=== PATIENT | female | born 2000 | race Caucasian/White ===

== ENCOUNTER 2023-02-13 16:38 | Emergency (ER) | payer OTHER, MEDICAID, SELFPAY ==
[2023-02-13 16:48] VITALS: BP 110/71; PULSE 82; RESP 18; TEMP 36.4; O2SAT 99
[2023-02-13] MEDS: TETANUS,DIPHTHERIA,AC PERTUSSIS ADULT (0.5 ML) BOOSTRIX IM (18:17)
--- NOTE | 2023-02-13 18:34 | ED.WOUNDLAC ---
HPI - Wound/Laceration General Chief Complaint: Wound/Laceration Stated Complaint: finger lac Time Seen by Provider: 02/13/23 17:40 Source: patient Mode of arrival: ambulatory Limitations: no limitations History of Present Illness HPI narrative: Patient is a 22 y/o female who presents to the ED with c/o laceration to her left hand. Patient reports she was opening a hard plastic children's toy tonight with a pocket knife when the knife slipped and she sustanied a laceration to her L hand in the webspace between her 1st/2nd digits. Patient denies significant pain. Denies numbness/tingling. Tetanus unknown. Related Data Allergies Allergy/AdvReac Type Severity Reaction Status Date / Time promethazine [From Phenergan] Allergy Hives Verified 02/13/23 17:29 Review of Systems Review of Systems: CONSTITUTIONAL: Denies fever, chills, or sweats.. SKIN: See HPI. MUSCULOSKELETAL: See HPI. NEUROLOGIC: Denies tingling, numbness, or weakness. All systems reviewed & are unremarkable except as noted in HPI and below Exam Narrative: GENERAL: Well appearing, well-nourished, non-toxic, in no acute distress. HEAD: Normocephalic, atraumatic. NECK: Supple. No adenopathy, no masses. RESPIRATORY: Airway patent, respirations nonlabored. CARDIOVASCULAR: Regular rate and rhythm without murmurs, rubs, or gallops. Radial pulses 2+ and equal bilaterally. MUSCULOSKELETAL: Moves all extremities. Strength/ROM intact without gross deformities. SKIN: Warm, dry, normal color. No rashes. 1.5 cm laceration to L dorsal hand in webspace between 1/2 digits. No significant bleeding. Sensation intact. NEURO: A&O X3. Speech clear. Cranial nerves II-XII grossly intact. Steady gait. No ataxic movements. PSYCHIATRIC: Appropriate mood and affect. Normal interaction. Course Vital Signs Vital signs: Vital Signs Temperature 97.5 F L 02/13/23 16:48 Pulse Rate 82 02/13/23 16:48 Respiratory Rate 18 02/13/23 16:48 Blood Pressure 110/71 02/13/23 16:48 Pulse Oximetry 99 02/13/23 16:48 Oxygen Delivery Room Air 02/13/23 16:48 Temperature 97.5 F L 02/13/23 16:48 Pulse Rate 82 02/13/23 16:48 Respiratory Rate 18 02/13/23 16:48 Blood Pressure 110/71 02/13/23 16:48 Pulse Oximetry 99 02/13/23 16:48 Oxygen Delivery Room Air 02/13/23 16:48 Procedures Laceration Laceration 1: Date: 02/13/23 Time: 18:30 Site: hand Side (If applicable): left Size (cm): 1.5 Description: linear Depth: simple, single layer Local Anesthetic: lidocaine 1% Amount of anesthesia used (mL): 5 Pre-repair: wound explored, irrigated and irrigated extensively ====== Skin Level ====== Skin layer closed with: nylon Size (cm): 5-0 Number of sutures: 3 Technique: simple, interrupted ====== Subcutaneous Layer ====== ====== Muscle Layer ====== ====== Tendon Layer ====== MDM - Wound/Laceration MDM Narrative Medical decision making narrative: Patient presented to ED with laceration to left hand. Patient neurovascularly intact. Laceration repaired w/o complications. Tetanus updated. Given wound care instructions and reasons to return. Medical Records Attestation: I reviewed the patient's medical records. Discharge Plan Discharge Clinical Impression: Laceration of left hand Qualifiers: Encounter type: initial encounter Foreign body presence: without foreign body Qualified Code(s): S61.412A - Laceration without foreign body of left hand, initial encounter Patient Disposition: Home, Self-Care Condition: Stable Instructions: Antibiotic Form, Care For Your Stitches (ED), Laceration (ED) Additional Instructions: Return to the ED or visit an urgent care or your PCP for follow-up and wound check/suture removal in 10 to 14 days. Keep the wound dry for 24 hours. You may remove the bandage after 24 hours and wash with simple soap and water, but
== END 2023-02-13 18:48 | disposition home or self-care (01) ==
PROVIDERS: Emergency Provider Physician Assistant
DX: S61.412A Laceration without foreign body of left hand, initial encounter (principal); W26.9XXA Contact with unspecified sharp object(s), initial encounter; Z23 Encounter for immunization
CPT/HCPCS: 12001; 90471; 90715; 99282

== ENCOUNTER 2023-07-24 15:43 | Emergency (ER) | payer OTHER, MEDICAID, SELFPAY ==
[2023-07-24 16:06] VITALS: BP 104/72; PULSE 84; RESP 16; TEMP 36.8; O2SAT 99
--- NOTE | 2023-07-24 16:58 | ED.GENADULT ---
HPI - General Adult General Chief complaint: Upper Respiratory Infection Stated complaint: throat swollen /pain Source: patient Mode of arrival: ambulatory Limitations: no limitations History of Present Illness HPI narrative: Patient presents for evaluation of sick symptoms for last 5 days. Her initial symptoms headache. Two days later she developed a sore throat. She denies any fever, chills, nausea, vomiting. She has experienced a nonproductive cough. Yesterday she had some mild shortness of breath but that has resolved. She has some hot flashes but states that those are consistent with , she is currently . Her mother was recently diagnosed with influenza and her brother with strep. Pt does use marijuana. Her daughter is also being evaluated for sick symptoms. Related Data Home Medications Medication Instructions Recorded Confirmed norethindrone (contraceptive) 0.35 0.25 mg PO DAILY 07/24/23 07/24/23 mg tablet (Jencycla) Allergies Allergy/AdvReac Type Severity Reaction Status Date / Time promethazine [From Phenergan] Allergy Hives Verified 07/24/23 15:44 Review of Systems Review of Systems: CONSTITUTIONAL: Denies fever, chills, or sweats. EYES: Denies visual changes, redness, or discharge. ENT: Reports sore throat. Denies rhinorrhea, congestion, or otalgia. CARDIOVASCULAR: Denies chest pain, palpitations, or edema. RESPIRATORY: reports cough. Reports mild shortness of breath yesterday, now resolved. GASTROINTESTINAL: Denies abdominal pain, nausea, vomiting, or diarrhea. GENITOURINARY: Denies dysuria or hematuria. SKIN: Denies rash or itching. MUSCULOSKELETAL: Denies back pain, joint pain, or myalgia. NEUROLOGIC: Reports headache. Deniesnumbness, dizziness, or weakness. PSYCHIATRIC: Denies anxiety or depression. [facility] Past Medical History Medical History No pertinent past medical history Surgical History Surgical History History of Family History Family History Mother DVT (deep venous thrombosis) Social History Social History Substance use: current Substance use type: marijuana Living arrangements: with family Gender identity (if verbalized by the patient): Female Sexual Orientation (if Verbalized by the Patient): Straight or Heterosexual Spiritual care concerns: No Exam Narrative: GENERAL: Well-appearing, well-nourished, and in no acute distress. HEAD: Normocephalic, atraumatic. EYES: PERRLA and EOMI. ENT: Nares clear, no rhinorrhea or epistaxis. Mucous membranes moist. Oropharynx without tonsillar hypertrophy exudate or other lesions. Bilateral TMs pearly carrera nonbulging NECK: Supple. No adenopathy or masses. No carotid bruits or JVD CHEST: Clear to auscultation. No respiratory distress. No wheezes rales or rhonchi HEART: Regular rate and rhythm. No murmur heard. Normal peripheral pulses. ABDOMEN: Soft, nontender, nondistended, normal active bowel sounds. EXTREMITIES: Normal range of motion. No edema. SKIN: Warm, dry, no rash. NEURO: No focal deficits. Alert and oriented x3. PSYCH: Normal mood and affect. Course Course Emergency Course: This is a 22-year-old female who presented for evaluation of sick symptoms. Strep, COVID, influenza were all negative. Exam is consistent with acute viral syndrome. Will increase hydration. OTC agents that are safe while for symptom management. Follow up with primary provider. Go to the ER for worsening symptoms. Pt in agreement with plan of care. Level of Care: Express Care Visit Vital Signs Vital signs: Vital Signs Temperature 36.8 C 07/24/23 16:06 Pulse Rate 84 07/24/23 16:06 Respiratory Rate 16 07/24/23 1
== END 2023-07-24 17:05 | disposition home or self-care (01) ==
PROVIDERS: Emergency Provider Nurse Practitioner
DX: B34.9 Viral infection, unspecified (principal); Z20.822 Contact with and (suspected) exposure to COVID-19; F12.90 Cannabis use, unspecified, uncomplicated
CPT/HCPCS: 87081; 87426; 87804; 87880; 99213; G0463

== ENCOUNTER 2024-08-04 22:06 | Emergency (ER) | payer BC, SELFPAY ==
--- NOTE | ~2024-08-04 | XR_ITS ---
XR knee LT min 4V Ordering provider: Lesly Lassiter History: . post reduciton; r/o assoc fx . Comparison: 08/04/2024 FINDINGS: BONES: Status post reduction of the dislocated left patella. No acute fracture or dislocation. JOINT SPACES: Normal. SOFT TISSUES: Normal. IMPRESSION: No acute osseous abnormality left knee. Status post reduction of the dislocated patella. Reviewed, dictated and finalized at location A.
--- NOTE | ~2024-08-04 | XR_ITS ---
XR knee LT 3V Ordering provider: Lesly Lassiter MD History: . deformity . Comparison: None. FINDINGS: BONES: No acute fracture. Lateral dislocation of the patella is noted. JOINT SPACES: Normal. SOFT TISSUES: Normal. IMPRESSION: No definite fractures. Lateral dislocation of the patella. Reviewed, dictated and finalized at location A.
[2024-08-04 22:06] VITALS: BP 108/80; PULSE 102; RESP 18; TEMP 36.7; O2SAT 97
[2024-08-04] MEDS: HYDROmorphone HCL INJ (*CRX) 1 MG/ML SYR IV PUSH (23:08)
--- OUTSIDE RECORDS SUMMARY | 2024-08-04 23:11 | XMS_ITS | Clinical Summary ---
Author Organization [facility] Address [facility] [place] [address] Care Team Providers Care Rn Research Name Role Phone Unavailable Primary Care Provider Unavailabl e Encounters Date Type Department Care Team Description 07/23/2024 Telephone [facility] Family & Internal Medicine [address] [id number] Holly Washington APNP Appointment Request from Last 3 Months Social History Tobacco Use Types Packs/Day Years Used Date Smoking Tobacco: Never Assessed Comments Unknown Sex and Gender Information Value Date Recorded Sex Assigned at Not on file Legal Sex Unknown 07/23/2024 8:59 AM CDT Gender Identity Not on file Sexual Orientation Not on file Plan of Treatment Health Maintenance Due Date Last Done Comments Cervical Cancer Screening Pa p Smear (Age 21 to 29) Every 3 Years 1998 Cervical Cancer Screening 1998 Annual Physical 2001 HPV Vaccines (1 - 3-dose series) 2013 Hepatitis C 2016 DTaP, Tdap and Td Vaccines ( 1 - Tdap) 2017 Hepatitis B Vaccines (1 of 3 - 19+ 3-dose series) 2017 COVID-19 Vaccine (2023-2 5 season) 2024 Meningococcal B Vaccine Aged Out No l onger eligible based on patient's age to complete this topic Meningococcal Vaccine Aged Out No kyler sebastian eligible based on patient's age to complete this topic Pneumococcal Vaccine: Pediat rics (0 to 5 Years) and At-Risk Patients (6 to 64 Years) Aged Out No longer eligible b ased on patient's age to complete this topic RSV Immunizations Under 20 Months Aged Out No longer eligible based on patient's age to complete this topic
--- OUTSIDE RECORDS SUMMARY | 2024-08-04 23:11 | XMS_ITS | Continuity of Care Document ---
Author Organization [facility] Address [address] [place] [address] Phone Care Team Providers Care Marker Delivery Name Role Phone CHITO OVALLE MD, FRANKLYN Unavailable Unavailab le Procedures Procedure Date ULTRASOUND, OB, 2ND/3RD TRIMESTER, SINGL E OR 1ST GESTATION Advance Directives Directive Yes / No Effective Date File Name No Information Encounters Encounter Description Practice Location Reason(s) For Visit Diagnoses Date Provider Providers Copied on Encounter [facility] , [address], [place], [address], [place] tel:[phone] [facility] Encounter for screening for malformationsWeeks Gestation of MD FRANKLYN FOWLER. [address] [facility] [facility] [address], [place], [place], [id number] , [place]. tel:[phone] Referring Provider: ANKIT RAMIREZ II S, [address] [facility], [place], [address]. tel:[phone] Family History Family Member Type Diagnosis Age At Onset No Information Payers Payer name Insurance type Covered constitution party ID Authoriza timeg(s) CIGNA [id number] OPEN ACCESS PLU [id number] [place] MED[place] [id number] [place] [id number] Social History Type Description Quantity Date Captured Comments Sex Female Smoking Status No Information Chief Complaint And Reason For Visit No Information History Of Present Illness Encounter Date Complaint History Of Prese nt Illness No Information Instructions Date Instruction Additional Infor mation No Information Assessments Type Assessment Date No Information
[2024-08-04 23:17] VITALS: BP 90/60; PULSE 77; RESP 12; O2SAT 96
--- NOTE | 2024-08-04 23:23 | ED_ITS ---
HPI - Extremity Injury (Lower) General Chief Complaint: Extremity Injury, Lower Stated Complaint: knee deformity Time Seen by Provider: 08/04/24 22:51 Source: patient and EMS Mode of arrival: EMS Limitations: no limitations History of Present Illness HPI Narrative: Patient presents obvious knee deformity by EMS. She states she was sitting couch with her toddler jumped on her. She has a history of previous recurrent left knee dislocations. 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 No paresthesias, just pain. Related Data Allergies Allergy/AdvReac Type Severity Reaction Status Date / Time promethazine (From Phenergan) Allergy Hives Verified 07/24/24 14:31 [facility] Past Medical History Medical History Recurrent dislocation of knee Encounter for gynecological examination Surgical History Surgical History History of Family History Family History Mother DVT (deep venous thrombosis) Thyroid cancer Social History Social History Smoking status: Former smoker Tobacco type: e-cigarettes/vaping Alcohol intake: never Substance use: former Substance use type: marijuana Do You Feel Safe in your Home?: Yes Lack of Transportation: No Lack of Food: Never True Current Housing: I Have Housing Concerned About Future Housing: No Difficulty Paying Gas/Electric Bills: No Difficulty Paying for Meds: No Currently Unemployed: No Education: High School Diploma/GED Difficulty w/ Childcare or Family Care: No Living arrangements: with family Additional living arrangements comments: Child Occupation/Education: student 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 HEAD: Normocephalic, atraumatic. EYES: Non injected, non icteric ENT: Nares clear, no rhinorrhea or epistaxis. NECK: Supple. CHEST: Speaking in full sentences. No respiratory distress. HEART: Tachycardic rate and rhythm. . ABDOMEN: Soft, nondistended. EXTREMITIES:Obvious left patellar dislocation with lateral displacement. No lower extremity edema. SKIN: Warm, dry, no rash. NEURO: No focal deficits. Alert and oriented x3. Sensation intact throughout thigh, knee, and calf/mtz. PSYCH: Normal mood and affect. Course Vital Signs Vital signs: Vital Signs Temperature 98.0 F 08/04/24 22:06 Pulse Rate 102 H 08/04/24 22:06 Respiratory Rate 18 08/04/24 22:06 Blood Pressure 108/80 08/04/24 22:06 Pulse Oximetry 97 08/04/24 22:06 Oxygen Delivery Room Air 08/04/24 22:06 Temperature 98.0 F 08/04/24 22:06 Pulse Rate 68 08/05/24 01:04 Respiratory Rate 16 08/05/24 01:04 Blood Pressure 123/64 08/05/24 01:04 Pulse Oximetry 98 08/05/24 01:04 Oxygen Delivery Room Air 08/04/24 22:06 MDM - Extremity Injury (Lower) MDM Narrative Medical decision making narrative: Patient presents with obvious left patellar dislocation sustained when toddler jumped on her knee. She has a history of frequent dislocations and had seen an orthopedic surgeon when she lived in [place] but now resides in this area as a full-time college student. In the emergency department she is afebrile with vital signs notable for mild tachycardia. Patient given Dilaudid for analgesia prior to procedure. JOINT REDUCTION PROCEDURE NOTE performed at 23:30 on 08/04/24 * Hip placed in mild flexion, facilitating relaxation of the quadriceps * RN applied slow downward pressure over quadriceps, stretching the muscle and slowly straightening the leg * I gently rotated the patella lateral to anterior * Immediately noted to be reduce and patient experiencing pain relief * No complications, patient tolerated well Patient placed in Michael wrap initially while obtaining images followed by placement in knee immobilizer. Obtained radiographs to rule out associated fracture. Patient discharged home in stable condition with prescriptions for analgesic medications. Allow weight-bearing as tolerated. Provided crutches if needed. Patient given contact information for local orthopedic surgeon and advised follow-up in the next 1-2 weeks. Verifies understanding, stable for discharge. Imaging Data My impression: Attempted to interpret/view postreduction images but unable to load more than single view. Unable to visualize sunrise view Radiologist's impression: XR Left Knee 4 V Stat Rad: Reduction of previously seen patellar dislocation. No visible fracture. Discharge Plan Discharge Clinical Impression: Closed dislocation of left patella Patient Disposition: Home Condition: Stable Instructions: Antibiotic Form, Patellar Dislocation (ED), Knee Immobilizer (ED) Additional Instructions: Recommend following up with the orthopedic surgeon listed below in 1-2 weeks. Call for an appointment. Keep the knee immobilizer in place until you follow up and bear weight as tolerated. Use the crutches as necessary. Acetaminophen/Tylenol (maximum 4000 mg per day) is safe to take with NSAIDs (ibuprofen/Motrin) for pain relief. Return to the emergency department with any new or worsening symptoms Patient Language: Slovenian Prescriptions: New ibuprofen 600 mg tablet 600 mg PO TID PRN (Reason: pain) Qty: 30 0RF acetaminophen 500 mg capsule 1,000 mg PO Q6H PRN (Reason: pain) Qty: 30 0RF No Action norethindrone ac-eth estradiol [ (21)] 1.5-30 mg-mcg tablet 1 tablet PO DAILY Qty: 63 0RF Follow-up/Referrals: Juan A Crouch MD [Physician] - (Orthopedics) UNKNOWN,DOCTOR [Primary Care Provider] - Stand Alone Forms: Work/School Release IP Time of Disposition: 01:22
--- NOTE | 2024-08-05 | PC.NURSE ---
ice applied and ARIC wrap L knee
--- NOTE | 2024-08-05 00:58 | PC.NURSE ---
knee immnobilizer applied to L leg.
[2024-08-05 01:04] VITALS: BP 123/64; PULSE 68; RESP 16; O2SAT 98
== END 2024-08-05 01:24 | disposition home or self-care (01) ==
PROVIDERS: Emergency Provider Student in an Organized Health Care Education/Training Program
DX: S83.015A Lateral dislocation of left patella, initial encounter (principal); Z87.891 Personal history of nicotine dependence; W51.XXXA Accidental striking against or bumped into by another person, initial encounter
CPT/HCPCS: 27560; 73562; 73564; 96374; 99284; 99285; J1171

== ENCOUNTER 2024-09-06 17:46 | Emergency (ER) | payer BC, SELFPAY ==
[2024-09-06] VITALS (9 sets, daily range): BP systolic 99–119; BP diastolic 62–83; PULSE 52–82; RESP 10–16; TEMP 36.6–36.7; O2SAT 95–100
--- NOTE | ~2024-09-06 | XR_ITS ---
HISTORY: POST REDUCTION COMPARISON: 08/04/2024 TECHNIQUE: 2 views of the left knee were performed FINDINGS: No acute or subacute fracture. Trace medial tibiofemoral joint space narrowing is identified. No suprapatellar joint effusion is identified. The infrapatellar joint space is clear. IMPRESSION: Anatomic alignment post reduction, as detailed above. Reviewed, dictated and finalized at location A.
[2024-09-06] MEDS: HYDROmorphone HCL INJ (*CRX) 2 MG/ML VIAL 1 MG IV PUSH (17:55)
--- NOTE | 2024-09-06 17:57 | PC.NURSE ---
EDP Torossian at bedside for knee reduction.
--- NOTE | 2024-09-06 18:09 | ED.LOWEXIN ---
HPI - Extremity Injury (Lower) General Chief Complaint: Extremity Injury, Lower Stated Complaint: L knee dislocation Time Seen by Provider: 09/06/24 17:46 History of Present Illness HPI Narrative: 23-year-old female with history of recurrent close dislocations of the left patella. Patient sees Orthopedic surgery outpatient for this and wears a hinged knee brace. She today was taking offered his knee brace as it was cutting into her skin and causing some discomfort. She was going up to use do some laundry and twisted and felt like her left patella dislocated once again. She landed on the ground and did not hit her head. She called EMS for assistance. Patient was transported and provided morphine and fluids in route. On arrival she does have an obvious lateral patellar dislocation but good distal range of motion and distal neuro vasculature with warm well-perfused extremity. No overlying skin changes. She was brought back to room 8. For evaluation. Denies any symptoms of neuropathy, weakness, sensation changes, headache, fever or chills. Related Data Allergies Allergy/AdvReac Type Severity Reaction Status Date / Time promethazine (From Phenergan) Allergy Hives Verified 07/24/24 14:31 Review of Systems Review of Systems: As reviewed above in HPI [facility] Past Medical History Medical History Recurrent dislocation of knee Encounter for gynecological examination Surgical History Surgical History History of Family History Family History Mother DVT (deep venous thrombosis) Thyroid cancer Social History Social History Smoking status: Former smoker Tobacco type: e-cigarettes/vaping Alcohol intake: never Substance use: former Substance use type: marijuana Do You Feel Safe in your Home?: Yes Lack of Transportation: No Lack of Food: Never True Current Housing: I Have Housing Concerned About Future Housing: No Difficulty Paying Gas/Electric Bills: No Difficulty Paying for Meds: No Currently Unemployed: No Education: High School Diploma/GED Difficulty w/ Childcare or Family Care: No Living arrangements: with family Additional living arrangements comments: Child Occupation/Education: student 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 Mucous membranes moist. NECK: Supple. CHEST: [Clear to auscultation. No respiratory distress.] HEART: [Regular rate and rhythm]. No murmur heard. [Normal peripheral pulses.] ABDOMEN: [Soft, nondistended], [nontender], [No rigidity or guarding] EXTREMITIES: Left lateral patellar dislocation, no overlying edema, no overlying skin changes, no laceration. Plantar and dorsiflexion 5/5, 2+ pedal pulses. Warm extremities, good range of motion at the hip and ankle. Guarded left knee with decreased range of motion. SKIN: Warm, dry, no rash. NEURO: [No focal deficits]. Alert and oriented [x3.] PSYCH: [Normal mood and affect.] Course Vital Signs Vital signs: Vital Signs Pulse Rate 82 09/06/24 17:47 Respiratory Rate 16 09/06/24 17:47 Blood Pressure 119/83 09/06/24 17:47 Pulse Oximetry 98 09/06/24 17:47 Oxygen Delivery Room Air 09/06/24 17:47 Temperature 36.7 C 09/06/24 19:05 Pulse Rate 54 L 09/06/24 19:05 Respiratory Rate 13 09/06/24 19:05 Blood Pressure 99/64 L 09/06/24 19:05 Pulse Oximetry 98 09/06/24 19:05 Oxygen Delivery Room Air 09/06/24 17:47 Procedures Orthopedic Joint Reduction Joint #1: Orthopedic Joint Reduction Date: 09/06/24 Orthopedic Joint Reduction Time: 18:08 Time Out Performed: Yes Side: left Joint Reduction Location: knee/patella Analgesia: other (IV Dilaudid 1 mg) Pre-Procedure Neuro Vascular Exam: normal Local Anesthesia: none Technique used: direct manipulation Post-reduction neuro exam: intact Post-reduction vascular: intact Post Reduction X-Ray Obtained: Yes Post Reduction X-Ray Results: reduced Splint Applied: Yes Patient Tolerated Procedure: well and no complications MDM - Extremity Injury (Lower) MDM Narrative Medical decision making narrative: 23-year-old female with history of recurrent left patellar dislocations. Patient wears a knee brace for support with a hinged. Follows with outpatient orthopedics for this. Today she took off the brace and trying to ambulate and felt a lateral dislocation happen once again. She fell to the ground but did not strike her head. Her examination is reassuring but does show an obvious closed lateral patellar dislocation. Distal neuro vasculature is intact, distal range of motion is intact. She was provided 1 mg of IV Dilaudid and close reduction was completed successfully at bedside. She a regained full range of motion of the knee and hip afterwards and placed into a knee immobilizer. Patient's pain has significantly improved at this time and she can be safely discharged after brief observation here in the emergency department for wearing off of her medications. Patient will follow with her orthopedic doctor and obtain further recommendations with possible interventions as needed for recurrent dislocations. Medical Records Attestation: I reviewed the patient's medical records. Imaging Data Attestation: I personally reviewed and interpreted this imaging study as follows: My impression: Successful relocation of a lateral patellar dislocation. No osseous abnormalities or fractures Discharge Plan Discharge Clinical Impression: Closed dislocation of left patella Patient Disposition: Home Condition: Stable Instructions: Antibiotic Form, Patellar Dislocation (ED), Knee Immobilizer (ED) Additional Instructions: Follow-up with your orthopedic provider for recurrent patellar dislocations. Wear the knee immobilizer and did not ambulate without it. Tylenol ibuprofen for any aches or pains. Return with any emergent concerns or re-dislocation. Patient Language: French Prescriptions: No Action norethindrone ac-eth estradiol [ (21)] 1.5-30 mg-mcg tablet 1 tablet PO DAILY Qty: 63 0RF ibuprofen 600 mg tablet 600 mg PO TID PRN (Reason: pain) Qty: 30 0RF acetaminophen 500 mg capsule 1,000 mg PO Q6H PRN (Reason: pain) Qty: 30 0RF Follow-up/Referrals: Juan A Crouch MD [Physician] - 1 Week (Recurrent patellar dislocation) UNKNOWN,DOCTOR [Non-Staff] - Time of Disposition: 18:16
--- OUTSIDE RECORDS SUMMARY | 2024-09-06 18:19 | XMS_ITS | Continuity of Care Document ---
Author Organization [facility] Address [address] [place] [address] Phone Care Team Providers Care Still Photographer Name Role Phone CHITO OVALLE MD, FRANKLYN Unavailable Unavailab le Procedures Procedure Date ULTRASOUND, OB, 2ND/3RD TRIMESTER, SINGL E OR 1ST GESTATION Advance Directives Directive Yes / No Effective Date File Name No Information Encounters Encounter Description Practice Location Reason(s) For Visit Diagnoses Date Provider Providers Copied on Encounter [facility] , [address], [address], [place] tel:[phone] [facility] Encounter for screening for malformationsWeeks Gestation of MD FRANKLYN FOWLER. [address] [facility] [facility] [address], [place], [place], [id number] , [place]. tel:[phone] Referring Provider: ANKIT RAMIREZ II S, [address], [place], [address]. tel:[phone] Family History Family Member Type Diagnosis Age At Onset No Information Payers Payer name Insurance type Covered green party ID Authoriza timeg(s) [employer] [id number] OPEN ACCESS [id number] [id number] [place] [employer] [id number] [place] [id number] Social History Type Description Quantity Date Captured Comments Sex Female Smoking Status No Information Chief Complaint And Reason For Visit No Information History Of Present Illness Encounter Date Complaint History Of Prese nt Illness No Information Instructions Date Instruction Additional Infor mation No Information Assessments Type Assessment Date No Information
--- OUTSIDE RECORDS SUMMARY | 2024-09-06 18:19 | XMS_ITS | Clinical Summary ---
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
--- NOTE | 2024-09-06 18:45 | PC.NURSE ---
This RN in to DC pt. When pt sat up, became n/v. Verbal order obtained from Dr Anderson for Laila.
[2024-09-06] MEDS: ONDANSETRON INJ 4 MG/2 ML VIAL IV PUSH (18:54)
== END 2024-09-06 19:08 | disposition home or self-care (01) ==
LOC: ANHED 18:17
PROVIDERS: Emergency Provider Student in an Organized Health Care Education/Training Program
DX: S83.015A Lateral dislocation of left patella, initial encounter (principal); X50.1XXA Overexertion from prolonged static or awkward postures, initial encounter
CPT/HCPCS: 27560; 73560; 96374; 96375; 99285; J1171; J2405